=== PATIENT | female | born 1965 | race Caucasian/White ===

== ENCOUNTER → 2017-12-03 | Outpatient (CLI) | payer BC ==
[~2017-12-03] MED LIST: CENTRUM SILVER1 EAC6 PO; FLEXERIL PO; LISINOPRIL10 MG PO; NORCO 5-325 TA1 EAC1 PO; NORCO 5-325 TA1 EACH PO; PAXIL10 MG; TOPAMAX 25 MG T25 M1 PO; ZANAFLEX4 MG PO; ZOLOFT25 MG PO
== END ==
LOC: M.RAD 16:00
DX: Z12.31 Encounter for screening mammogram for malignant neoplasm of breast (principal)